=== PATIENT | male | born 1955 | race Caucasian/White ===

== ENCOUNTER 2024-06-22 21:22 | Emergency (ER) | payer MEDICARE, OTHER, SELFPAY ==
[2024-06-22 21:29] VITALS: BP 166/79; PULSE 60; RESP 18; TEMP 36.3; O2SAT 100; BMI 28.5
--- NOTE | 2024-06-22 21:42 | DI.RAD.S_ITS ---
PROCEDURE: XR ELBOW RT MIN 3V INDICATIONS: injury TECHNIQUE: 3 views of the elbow were acquired. COMPARISON: [facility], CR, XR FEMUR RT MIN 2V, 06/22/2024, 21:44. FINDINGS: Bones: There is a potential minimally displaced fracture of the radial neck. Generalized degenerative changes are seen. Soft tissues: There is a moderate elbow joint effusion. IMPRESSION: Potential minimally displaced fracture of the radial neck. Please correlate with focal tenderness. If it would be helpful for clinical management decision making in this patient with this given history, please consider a dedicated elbow CT for further evaluation. Dictated by: Yandel Gutierrez M.D. on 06/22/2024 at 21:42 Approved by: Yandel Gutierrez M.D. on 06/22/2024 at 21:43
--- NOTE | 2024-06-22 21:43 | DI.RAD.S_ITS ---
PROCEDURE: XR FEMUR RT MIN 2V INDICATIONS: injury TECHNIQUE: 2 views of the femur were acquired. COMPARISON: [facility], CR, XR ELBOW RT MIN 3V, 06/22/2024, 21:44. FINDINGS: Bones: Right femur hardware is seen, which appears intact. There is a prior fracture of the intratrochanteric region. No superimposed acute fractures are seen. Soft tissues: No suspicious soft tissue calcifications or masses. There is a sacral stimulator seen. A penile implant is partially seen. IMPRESSION: No rayne acute bony abnormality is seen. Intact appearing hardware. Remote intratrochanteric fracture. Dictated by: Yandel Gutierrez M.D. on 06/22/2024 at 21:41 Approved by: Yandel Gutierrez M.D. on 06/22/2024 at 21:42
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
[2024-06-22] MEDS: HYDROCODONE/ACET 5/325 TABLET 1 TAB PO (23:48)
[2024-06-22] MEDS: HYDROCODONE/ACET 5/325 PREPACK 1 BOTTLE MISC (23:48)
[2024-06-22 23:50] VITALS: BP 156/78; PULSE 62; RESP 18; O2SAT 100
== END 2024-06-22 23:55 | disposition home or self-care (01) ==
PROVIDERS: Emergency Provider Emergency Medicine
DX: S52.131A Displaced fracture of neck of right radius, initial encounter for closed fracture (principal); W18.30XA Fall on same level, unspecified, initial encounter
CPT/HCPCS: 29125; 73080; 73552; 99283

== ENCOUNTER → 2024-07-09 14:44 | Outpatient (CLI) | payer MEDICARE, OTHER, SELFPAY ==
--- NOTE | 2024-07-09 | DI.US.S_ITS ---
PROCEDURE: US PERIPH VENOUS LOW EXTREM RT INDICATIONS: Pain in right leg, fall, injury 3 weeks prior with bruising per notes. TECHNIQUE: Real-time imaging, as well as color and pulse Doppler interrogation, were performed of the lower extremity deep veins from the inguinal ligament to the popliteal fossa, with documentation of the visualized calf veins. Twenty-two images. COMPARISON: None. FINDINGS: The common femoral, femoral, popliteal, and the visualized calf veins are normally compressible, and free of intraluminal thrombus. Color and pulse Doppler demonstrate normal phasic intraluminal flow. There is normal augmentation response to distal compression maneuver. Mild soft tissue, subcutaneous tissue edema, possible ecchymosis without large hematoma in the posterior-lateral right thigh. No ultrasound evidence of focal fluid collection or abscess. IMPRESSION: No findings of right lower extremity deep venous thrombosis. Dictated by: Bam Huang M.D. on 07/09/2024 at 15:25 Approved by: Bam Huang M.D. on 07/09/2024 at 15:28
== END ==
LOC: US 14:46
PROVIDERS: Referring Provider Orthopaedic Surgery Foot and Ankle Surgery; Visit Provider Orthopaedic Surgery Foot and Ankle Surgery
DX: M79.604 Pain in right leg (principal)
CPT/HCPCS: 93971